=== PATIENT | female | born 1995 | race Caucasian/White ===

== ENCOUNTER 2017-05-26 05:59 | Inpatient (IN) | payer BC ==
[~2017-05-26] VITALS: Ht 160 cm; Wt 70.5 kg
[2017-06-17] VITALS (51 sets, daily range): BP systolic 11–137; BP diastolic 51–84; PULSE 74–121; TEMP 97.3–99.3
[2017-06-17] MEDS ORDERED: PRENATAL1 TA7 PO (09:43)
[2017-06-17] MEDS ORDERED: TUMS500 MG (09:44)
[2017-06-17] MEDS ORDERED: PERCOCET 325 MG1 TA2 PO (09:59)
[2017-06-17] MEDS ORDERED: MOTRIN 800800 MG/TAB PO (09:59)
[2017-06-17 10:39] LABS: BASO # 0.1 (0.0-0.2); BASO % 0.5 % (0.0-2.0); EOS % 0.4 % (0-4.0); GRAN # 7.1 (1.4-6.5); GRAN % 75.7 % (42.2-75.2); LYMPH # 1.6 (1.2-3.4); MEAN CELL VOLUME 84 fl (80.0-100.0); MEAN CORPUSCULAR HGB CONC 32 g/dl (33.0-37.0); MEAN PLATELET VOLUME 9.6 fl (7.4-10.4); MONO # 0.6 (0.1-0.6); MONO % 5.9 % (1.7-9.3); PLATELET COUNT 381 K/mm3 (130-400); RED BLOOD COUNT 4.29 M/mm3 (4.10-5.30); WHITE BLOOD COUNT 9.3 K/mm3 (4.8-10.8)
[2017-06-17 10:40] LABS: HEMATOCRIT 36.2 % (37.0-47.0); HEMOGLOBIN 11.7 g/dl (12.5-16.0); MEAN CORPUSCULAR HEMOGLOBIN 27 pg (27.0-31.0)
[2017-06-18] VITALS (43 sets, daily range): BP systolic 88–127; BP diastolic 51–595; PULSE 72–141; TEMP 98.1–98.8
[2017-06-19 07:45] VITALS: BP 116/74; PULSE 88; TEMP 97.8
[2017-06-19 16:25] VITALS: BP 11/69; PULSE 93; TEMP 98
[2017-06-19 19:45] VITALS: BP 116/73; PULSE 84; TEMP 97.6
[2017-06-20 10:00] VITALS: BP 111/76; PULSE 73; TEMP 97.9
== END 2017-06-20 13:35 | disposition home or self-care (01) | DRG 775 ==
LOC: LDRO 06-10 05:59 → EDSTATUS 06-10 14:58 → OB 06-17 09:29 → LDR 06-17 09:29 → OB 06-18 11:20
PROVIDERS: Obstetrics & Gynecology
PROC: 10E0XZZ Delivery of Products of Conception, External Approach (ICD-10-PCS; principal; 2017-06-18)
PROC: 0KQM0ZZ Repair Perineum Muscle, Open Approach (ICD-10-PCS; 2017-06-18)
PROC: 3E033VJ Introduction of Other Hormone into Peripheral Vein, Percutaneous Approach (ICD-10-PCS; 2017-06-18)
DX: O48.0 Post-term pregnancy (principal); O70.1 Second degree perineal laceration during delivery; O75.89 Other specified complications of labor and delivery; Z3A.41 41 weeks gestation of pregnancy; Z37.0 Single live birth
CPT/HCPCS: J0690; J2210; J2400; J2590; J7120

== ENCOUNTER → 2018-07-17 | Outpatient (CLI) | payer BC ==
[~2018-07-17] MED LIST: MOTRIN 800800 MG/TAB PO; PERCOCET 325 MG1 TA2 PO; PRENATAL1 TA7 PO; TUMS500 MG
== END ==
LOC: MC.RAD 13:26
DX: N63.21 Unspecified lump in the left breast, upper outer quadrant (principal)

== ENCOUNTER 2018-07-20 22:53 | Emergency (ER) | payer BC ==
[~2018-07-20] VITALS: Ht 162.6 cm; Wt 52.3 kg
[2018-07-20 22:58] VITALS: BP 120/74; TEMP 97.3
[2018-07-21 01:35] VITALS: PULSE 90
== END 2018-07-21 01:35 | disposition home or self-care (01) ==
LOC: COL.ER 22:53
DX: R04.0 Epistaxis (principal)

== ENCOUNTER → 2019-03-07 | Outpatient (CLI) | payer BC | LOC: MC.RAD 08:04 | DX: N63.21 Unspecified lump in the left breast, upper outer quadrant (principal); R92.8 Other abnormal and inconclusive findings on diagnostic imaging of breast ==

== ENCOUNTER 2020-03-12 11:30 | Outpatient (CLI) | payer BC ==
[~2020-03-12] VITALS: Ht 160 cm; Wt 58.6 kg
[2020-03-12 10:57] VITALS: BP 108/67; PULSE 96; TEMP 97.8
--- NOTE | 2020-03-12 11:30 | NUR ---
Patient arrives ambulatory for scheduled external version with Dr. Cohen. Patient denies contractions, ROM or vaginal bleeding. Reports normal movement. Patient changes into gown, EFM explained and placed. VSS. Assessment completed, consent explained and signed. Denies questions. 1140- IV started in [facility] and saline locked per protocol. 1148- Dr. Cohen at bedside. Vertex presentation confirmed via bedside ultrasound. Patient updated on plan of care to scheduleinduction. Orders to dc home after 20 minute FHR strip.
[2020-03-12 12:00] VITALS: BP 108/67; PULSE 96; TEMP 97.8
--- NOTE | 2020-03-12 12:10 | NUR ---
Patient given labor precuations and kick count review. Leaves ambulatory per order.
== END 2020-03-12 12:10 | disposition home or self-care (01) ==
LOC: LDRO 11:30
DX: O26.893 Other specified pregnancy related conditions, third trimester (principal); Z3A.38 38 weeks gestation of pregnancy

== ENCOUNTER 2020-03-19 07:04 | Inpatient (IN) | payer BC ==
[~2020-03-19] VITALS: Ht 160 cm; Wt 69.5 kg
[2020-03-19] VITALS (45 sets, daily range): BP systolic 90–149; BP diastolic 51–87; PULSE 67–135; TEMP 97.5–98.7
--- NOTE | 2020-03-19 07:10 | NUR ---
0710-39.1 WEEK G2L1 patient ambulatory to LR 5 for scheduled induction of labor. Assisted into gown and placed on EFM. 0715-Dr. Cohen to room. Bedside sono by , vertex presentation confirmed by Dr. Cohen. EFM resumed. Assessment complete. Consents reviewed and signed. 0730-IV to left forearm, blood collected and sent to lab per orders. LR infusing per orders, see EMAR.
[2020-03-19 08:33] LABS: BASO % 0.3 % (0.0-2.0); EOS # 0.1 (0.0-0.7); EOS % 0.5 % (0-4.0); GRAN # 6.8 (1.4-6.5); GRAN % 73.2 % (42.2-75.2); HEMATOCRIT 38.5 % (37.0-47.0); HEMOGLOBIN 12.3 g/dl (12.5-16.0); LYMPH # 1.7 (1.2-3.4); LYMPH % 18.8 % (20.0-51.0); MEAN CELL VOLUME 85 fl (80.0-100.0); MEAN CORPUSCULAR HEMOGLOBIN 27 pg (27.0-31.0); MEAN CORPUSCULAR HGB CONC 32 g/dl (33.0-37.0); MEAN PLATELET VOLUME 9.7 fl (7.4-10.4); MONO # 0.6 (0.1-0.6); MONO % 6.7 % (1.7-9.3); PLATELET COUNT 358 K/mm3 (130-400); RED BLOOD COUNT 4.54 M/mm3 (4.10-5.30); REDCELL DISTRIBUTION WIDTH-CV 15.2 % (11.5-14.5)
--- NOTE | 2020-03-19 11:50 | NUR ---
1150-Dr. Cohen to unit. In to see patient and discuss plan of care. 1154-SVE by , AROM clear fluid noted /-2, Repositoned WL. 1220-Patient requests epidural. OTTO Rosen notified. IVFB started 1230-Patient sitting upright on bedside for epidural placment. 1240-Single shot administered by OTTO Rosen, VSS, see anesthesia records. 1243-Test dose administered by OTTO Rosen, Patient tolerates procedure well. Repositioned WL. Updated on plan of care and safety.
--- NOTE | 2020-03-19 13:22 | NUR ---
1322-Cano to DD, Clear yellow urine return, SVE 4/80/-2, FHR baseline change to 115bpm. Maternal HR 90/52, HR 78. Repostioned back WL. 1340-FHR with variable decel down to 60's, Quick spontaneous return to baseline. SVE 5/90/-2, 1354-Dr. Cohen updated see physican notification. 1405-Ephedrine 10mg given per protocol, see EMAR, 1415-Maternal BP 108/57 HR 69. FHR remains baseline 115 with intermittent early and vaiable decels. 1420-10mg Ephedrine given, see EMAR 1430-Maternal BP 114/57, maternal HR 67. Repositoned WR with peanut ball. 1445-SVE 6-7/[address]/-[address] Cohen updated Dr. Cohen see physician notification.
--- NOTE | 2020-03-19 15:45 | NUR ---
1545-SVE , updated md, see physican notificatioin. 1600-Dr. Cohen on unit. SVE by orders to increase pitocin to 22mu/min. Patient WR with LLE in [facility]. MD remains at unit desk. 1635-SVE by - per MD who remains on unit. Patient remains in WR with LLE in [facility]. 1657-Patient complete per MD. Set up for delivery. 170-Patient begins pushing with Dr. Cohen at bedside. Moves vertex well. 1717-Spontaneous vaginal delivery of head immediately followed by body. Viable female to mothers abdomen. Cord clamped x2 and cut by FOB. Care of infant assumed by ARUN Irwin Apgars . 1719-Spontaneous delivery of intact placenta by . Fundal massage firm. Lochia WNL. Pitocin bolus per MD order and protocol. 2nd degre perineal laceration by MD. Ritika care provided. Updated on plan of care and safety.
[2020-03-20 00:57] VITALS: BP 95/55; PULSE 87; TEMP 98.3
[2020-03-20 05:15] VITALS: BP 105/69; PULSE 84; TEMP 97.4
[2020-03-20 07:15] VITALS: BP 100/62; PULSE 89; TEMP 98.1
[2020-03-20 11:20] VITALS: BP 102/75; PULSE 86; TEMP 97.5
[2020-03-20 16:50] VITALS: BP 98/64; PULSE 80; TEMP 97.9
--- NOTE | 2020-03-20 18:35 | NUR ---
Report recieved. Patient is in the process of discharging. Discharge education provided. Educated on Motrin dose and frequency. Informed of f/u appointment. bands verified. Support person packing up belongings and taking them to care. Denied questions or concerns.
--- NOTE | 2020-03-20 19:40 | NUR ---
Secured infant in [facility]. Ambulated off unit with Siomara Gotti bore mill operator. Discharged at this time.
== END 2020-03-20 19:40 | disposition home or self-care (01) | DRG 807 ==
LOC: LDR 07:04 → OB 14:53
PROVIDERS: ADMIT Obstetrics & Gynecology
PROC: 10E0XZZ Delivery of Products of Conception, External Approach (ICD-10-PCS; principal; 2020-03-19)
PROC: 0KQM0ZZ Repair Perineum Muscle, Open Approach (ICD-10-PCS; 2020-03-19)
PROC: 3E033VJ Introduction of Other Hormone into Peripheral Vein, Percutaneous Approach (ICD-10-PCS; 2020-03-19)
PROC: 10907ZC Drainage of Amniotic Fluid, Therapeutic from Products of Conception, Via Natural or Artificial Opening (ICD-10-PCS; 2020-03-19)
DX: O32.0XX0 Maternal care for unstable lie, not applicable or unspecified (principal); Z37.0 Single live birth; Z3A.39 39 weeks gestation of pregnancy; O99.02 Anemia complicating childbirth; O70.1 Second degree perineal laceration during delivery
CPT/HCPCS: J0690; J2590; J2795; J7120